=== PATIENT | male | born 1955 | race Caucasian/White ===

== ENCOUNTER 2017-02-20 16:12 | Emergency (ER) | payer BC, OTHER ==
[2017-02-20 16:24] VITALS: BP 129/91
[2017-02-20] MEDS ORDERED: methylPREDNISolone Sodium Succinate 125 MG/2 ML SDV IVPUSH ONE (16:33)
[2017-02-20] MEDS ORDERED: diphenhydrAMINE 50 MG/ML SDV IVPUSH ONE (16:34)
[2017-02-20] MEDS ORDERED: Famotidine 20 MG/2 ML SDV IVPUSH ONE (16:34)
--- NOTE | 2017-02-20 16:42 | EDM.PDOC ---
ED HPI GENERAL MEDICAL PROBLEM - General Chief Complaint: Allergic Reaction Stated Complaint: ALLERGIC TO BEE STINGS; STUNG BY SEVERAL Time Seen by Provider: 02/20/17 16:33 Source of Information: Reports: Patient, Family (spouse) History Limitations: Reports: No Limitations - History of Present Illness INITIAL COMMENTS - FREE TEXT/NARRATIVE: 61-year-old male presents to the ED after being stung he believes at least 6 times by wasps. Got 3 on the side of his left hand occipital behind his left ear and left neck. One on his right lower abdominal wall and at least one or 2 on his right forearm. About 40 years ago he had a anaphylactic shock to a bee sting. He's been stung many times since that time and never had a anaphylactic shock. Usually gets large localized reactions. Injuries occurred approximately half hour before coming to the ED. He does not feel any respiratory distress or swelling in his throat or eyes. Just itch at the site of the stings. Onset: Today Onset Date: 02/20/17 Onset Time: 16:00 Duration: Minutes: Location: Reports: Generalized (Multiple insect stings likelyyellow jackets or wasps believes he may have been stung as many as 6 times.) Quality: Reports: Burning, Stabbing, Other Severity: Moderate (Itching) Improves with: Reports: None Worsens with: Reports: None Context: Reports: Other (They started a swarm about the ground.). Denies: Activity, Exercise, Lifting, Sick Contact, Trauma Associated Symptoms: Denies: Confusion, Chest Pain, Cough, cough w sputum, Diaphoresis, Fever/Chills, Headaches, Loss of Appetite, Malaise, Nausea/Vomiting , Rash, Seizure, Shortness of Breath, Syncope Treatments GLUE COOK: Reports: Other (see below) (None.) Left Neck Pain Score (Numeric/FACES): 6 - Related Data Allergies Allergy/AdvReac Type Severity Reaction Status Date / Time No Known Allergies Allergy Verified 02/20/17 16:25 Home Meds: Home Meds Allopurinol [Zyloprim] 100 mg PO DAILY 02/20/17 [History] Rosuvastatin Calcium [Crestor] 40 mg PO DAILY 02/20/17 [History] Past Medical History Cardiovascular History: Reports: High Cholesterol Musculoskeletal History: Reports: Gout, Osteoarthritis Immunologic History: Reports: Other (See Below) (Previous anaphylactic shock to bee sting 40 years ago.) Social & Family History - Living Situation & Occupation Living situation: Reports: Occupation: Employed ED ROS ALLERGIC REACTION - Review of Systems Review Of Systems: See Below Constitutional: Denies: Fever, Chills, Malaise, Weakness, Fatigue, Decreased Appetite, Weight Loss HEENT: Reports: No Symptoms Respiratory: Reports: No Symptoms. Denies: Shortness of Breath, Wheezing Cardiovascular: Reports: No Symptoms Endocrine: Reports: No Symptoms GI/Abdominal: Reports: No Symptoms : Reports: No Symptoms Musculoskeletal: Reports: No Symptoms Skin: Reports: Other (Itching erythema and swelling at the sites of multiple wasp stings. This is particularly hisvolarrightforearmandhisrightlowerabdominalwall.Stingstotheleftlateralneckand3 onhisscalparelessswollenbutaremarredmarkedlyerythematous. ) Psychiatric: Reports: No Symptoms Hematologic/Lymphatic: Reports: No Symptoms Immunologic: Reports: No Symptoms ED EXAM GENERAL NO PERIP PULSE - Physical Exam Exam: See Below Exam Limited By: No Limitations General Appearance: Alert, WD/WN, No Apparent Distress, Other (Phonation is normal.) Eye Exam: Bilateral Eye: Normal Inspection Throat/Mouth: Normal Inspection, Normal Lips, Normal Teeth, Normal Oropharynx, Other (Uvula and floor the mouth are normal.) Head: Atraumatic, Normocephalic Neck: Normal Inspection, Supple, Non-Tender, Full Range of Motion, Other (Mild swelling left lateral neck in the zone 3. He has a staying in this area with overlying erythema and swelling.) Respiratory/Chest: No Respiratory Distress, Lungs Clear, Normal Breath Sounds, No Accessory Muscle Use, Respiratory Distress, Wheezing (No wheezing.) Cardiovascular: Normal Peripheral Pulses, Regular Rate, Rhythm, No Edema, No Gallop, No Murmur GI/Abdominal: Normal Bowel Sounds, Soft, Non-Tender, No Organomegaly, No Distention, No Abnormal Bruit Back Exam: Normal Inspection, Full Range of Motion Extremities: Normal Range of Motion, Non-Tender, Normal Capillary Refill, Other Neurological: Alert, Oriented, CN II-XII Intact, Normal Cognition Psychiatric: Normal Affect, Normal Mood Skin Exam: Warm, Dry, Intact, Erythema (Erythema and swelling at multiple wasp sting sites particularly right lower abdominal wall the lower aspect of his right forearm left side of the scalp behind his left ear and along his left neck. No evidence of respiratory compromise or swelling in his throat or neck. No hives at this time) Course - Vital Signs Last Recorded V/S: Last Vital Signs Temp 37.2 C 02/20/17 16:20 Pulse 92 02/20/17 16:20 Resp 14 02/20/17 16:20 BP 129/91 H 02/20/17 16:20 Pulse Ox 96 02/20/17 16:20 - Orders/Labs/Meds Orders: Active Orders 24 hr Category Date Time Status Ketorolac [Toradol] Med 02/20/17 17:30 Active 30 mg IVPUSH ONETIME Sodium Chloride 0.9% [Normal Saline] 1,000 ml Med 02/20/17 16:45 Active IV ASDIRECTED Medication Orders Sodium Chloride (Normal Saline) 1,000 mls @ 250 mls/hr IV ASDIRECTED ELVA Last Admin: 02/20/17 16:50 Dose: 250 mls/hr Ketorolac Tromethamine (Toradol) 30 mg IVPUSH ONETIME ELVA Last Admin: 02/20/17 17:45 Dose: 30 mg Meds: Medications Generic Name Dose Route Start Last Admin Trade Name Freq PRN Reason Stop Dose Admin Sodium Chloride 1,000 mls @ 250 mls/hr 02/20/17 16:45 02/20/17 16:50 Normal Saline IV 250 mls/hr ASDIRECTED ELVA Administration Ketorolac Tromethamine 30 mg 02/20/17 17:30 02/20/17 17:45 Toradol IVPUSH 30 mg ONETIME ELVA Administration Discontinued Medications Generic Name Dose Route Start Last Admin Trade Name Freq PRN Reason Stop Dose Admin Diphenhydramine HCl 50 mg 02/20/17 16:34 02/20/17 16:52 Benadryl IVPUSH 02/20/17 16:35 50 mg ONETIME ONE Administration Famotidine 20 mg 02/20/17 16:34 02/20/17 16:52 Pepcid IVPUSH 02/20/17 16:35 20 mg ONETIME ONE Administration Fentanyl 50 mcg 02/20/17 17:25 02/20/17 17:41 Sublimaze IVPUSH 02/20/17 17:26 50 mcg ONETIME ONE Administration Methylprednisolone Sodium Succinate 125 mg 02/20/17 16:33 02/20/17 16:51 Solu-Medrol IVPUSH 02/20/17 16:34 125 mg ONETIME ONE Administration - Radiology Interpretation Free Text/Narrative:: 61-year-old male reports to the ED after being stung by multiple wasps he estimates 6 things. These occurred approximately 43-5 minutes prior to coming to the ED. Years ago he reports he had an anaphylactic reaction to a bee sting. Since that time he spends timeout multiple times by helicopter without any anaphylactic reaction but localized reactions. Today he appears to have suffered localized reactions to his forearm abdominal wall and scalp and left neck from multiple stings. Landed he will be given Cymetra 125 mg IV with Pepcid 20 mg IV and Benadryl 50 mg IV to make sure that he does not develop any further serious adverse effect to stings. - Re-Assessments/Exams Free Text/Narrative Re-Assessment/Exam: 02/20/17 17:26 he is not feeling any signs or symptoms of respiratory distress or wheezing. He has having a lot of pain at the insect sting site particularly on his left scalp and left neck. The lesion on his right forearm is fading as is the lesion on his right lower abdominal wall. I will give him Toradol 30 g IV for pain relief.Also Fentanyl 50mcg IV as well. Departure - Departure Time of Disposition: 18:05 Disposition: Home, Self-Care 01 Condition: Fair Clinical Impression: Hymenoptera sting Qualifiers: Encounter type: initial encounter Injury intent: accidental or unintentional Qualified Code(s): T63.481A - Toxic effect of venom of other arthropod, accidental (unintentional), initial encounter - Discharge Information Referrals: Riccardo Juárez MD [Primary Care Provider] - Forms: ED Department Discharge Additional Instructions: Evaluation the emergency room today in regards to multiple wasp stings with multiple localized swelling suspect to be to the left scalp left neck right abdominal wall right forearm. Two-year history of anaphylactic reaction to bee sting many years ago you're given intravenous medications Solu-Medrol 125 mg with Benadryl 50 mg and Pepcid 20 mg for acute allergic reaction relief. You're also given Toradol 30 mg IV with Fentanyl 50mcg IV for pain relief. Treatment at home is cool compresses to the sore areas. Continue Motrin 6 mg every 6 hours needed for pain relief. Benadryl 50 mg every 6 hours by mouth if needed for itch or worsening rash development. If you develop any problems breathing or swallowing then return immediately to the ED. Of note this is extremely highly unlikely to occur since the medications you were given should prevent this. - My Orders Last 24 Hours: My Active Orders 02/20/17 16:45 Sodium Chloride 0.9% [Normal Saline] 1,000 ml IV ASDIRECTED 02/20/17 17:30 Ketorolac [Toradol] 30 mg IVPUSH ONETIME - Assessment/Plan Last 24 Hours: My Active Orders 02/20/17 16:45 Sodium Chloride 0.9% [Normal Saline] 1,000 ml IV ASDIRECTED 02/20/17 17:30 Ketorolac [Toradol] 30 mg IVPUSH ONETIME
[2017-02-20] MEDS ORDERED: Sodium Chloride 0.9% 1,000 ML IV SCH (16:45)
[2017-02-20] MEDS ORDERED: fentaNYL 100 MCG/2 ML SDV IVPUSH ONE (17:25)
[2017-02-20] MEDS ORDERED: Ketorolac 30 MG/ML SDV IVPUSH SCH (17:30)
== END 2017-02-20 18:10 | disposition home or self-care (01) ==
LOC: JD.ED 16:12
DX: T63.481A Toxic effect of venom of other arthropod, accidental (unintentional), initial encounter (principal); E78.00 Pure hypercholesterolemia, unspecified; M19.90 Unspecified osteoarthritis, unspecified site; Z79.899 Other long term (current) drug therapy
CPT/HCPCS: 96361; 96374; 96375; 99283; J1200; J1885; J2930; J3010; J7040; 99284

== ENCOUNTER 2024-01-19 04:31 | Emergency (ER) | payer BC, MEDICARE ==
[2024-01-19] MEDS ORDERED: Sodium Chloride 0.9% 10 ML Syringe FLUSH PRN (04:59)
[2024-01-19] MEDS: Aspirin 81 MG Tab.Chew PO ONE (05:19)
[2024-01-19 05:20] LABS: A/G RATIO 1.3 (1-2); ALBUMIN 3.4 g/dl (3.4-5.0); ANION GAP 11.1 (5-15); BILIRUBIN TOTAL 0.4 mg/dL (0.2-1.0); BUN/CREATININE RATIO 7.1 (14-18); CALCIUM 8.9 mg/dL (8.5-10.1); CREATININE 1.4 mg/dL (0.7-1.3); EST CRCL DRUG DOSING (CG) 45.57 mL/min; POTASSIUM,K 4.1 mEq/L (3.5-5.1); PROTEIN TOTAL,TP 6.1 g/dl (6.4-8.2)
[2024-01-19 05:31] LABS: BASOPHILS ABSOLUTE AUTO 0.1 K/mm3 (0.0-0.2); EOSINOPHILS ABSOLUTE AUTO 0.5 K/mm3 (0.0-0.4); EOSINOPHILS PERCENT AUTO 6.2 % (0.0-6.0); HEMATOCRIT 41.9 % (42.0-52.0); HEMOGLOBIN 14.7 gm/dl (14.0-18.0); IMMATURE GRAN ABSOLUTE AUTO 0.03 K/mm3 (0.00-0.05); IMMATURE GRAN PERCENT AUTO 0.4 % (0.0-0.4); LYMPHOCYTES ABSOLUTE AUTO 2.6 K/mm3 (1.0-4.8); LYMPHOCYTES PERCENT AUTO 31.8 % (24.0-44.0); MEAN CORPUSCULAR HEMOGLOBIN 33.5 pg (28.0-32.0); MEAN CORPUSCULAR HGB CONC 35.1 g/dl (32.0-36.0); MEAN CORPUSCULAR VOLUME 95.4 fl (83.0-99.0); MEAN PLATELET VOLUME 9.6 fl (9.4-12.4); MONOCYTES ABSOLUTE AUTO 0.8 K/mm3 (0.0-0.8); MONOCYTES PERCENT AUTO 9.1 % (0.0-8.0); NEUTROPHILS ABSOLUTE AUTO 4.2 K/mm3 (1.8-7.7); NEUTROPHILS PERCENT AUTO 51.5 % (41.0-71.0); PLATELET COUNT,PLT 158 K/mm3 (150-400); RED BLOOD CELL COUNT 4.39 M/mm3 (4.52-5.90); WHITE BLOOD CELL COUNT,WBC 8.23 K/mm3 (3.9-11.3)
[2024-01-19 09:56] VITALS: BP 120/82; PULSE 54
== END 2024-01-19 09:35 | disposition home or self-care (01) ==
LOC: JD.ED 04:31
DX: R07.89 Other chest pain (principal); R79.89 Other specified abnormal findings of blood chemistry; E78.00 Pure hypercholesterolemia, unspecified; F17.210 Nicotine dependence, cigarettes, uncomplicated; M10.9 Gout, unspecified; Z79.82 Long term (current) use of aspirin; Z79.899 Other long term (current) drug therapy; Z86.16 Personal history of COVID-19; Z68.29 Body mass index [BMI] 29.0-29.9, adult
CPT/HCPCS: 36415; 71045; 80053; 83690; 84484; 85025; 93005; 99285; A9270; 93010; 99283